=== PATIENT | female | born 1960 | race Caucasian/White ===

== ENCOUNTER 2024-10-04 11:53 | Outpatient (REF) | payer OTHER, SELFPAY ==
[2024-10-04 13:51] LABS: Vitamin B12 718 pg/mL (200-900)
[2024-10-05 09:33] LABS: Lyme Abs Screen <0.90 index
== END 2024-10-04 11:54 | disposition home or self-care (01) ==
LOC: HO.LAB 11:53
PROVIDERS: PCP Internal Medicine; Visit Provider Psychiatry & Neurology Neurology
DX: G30.9 Alzheimer's disease, unspecified (principal)
CPT/HCPCS: 36415; 82607; 86617; 86618

== ENCOUNTER 2024-10-27 09:50 | Outpatient (REF) | payer OTHER, SELFPAY ==
--- NOTE | ~2024-10-27 | MR_ITS ---
EXAMINATION: MR BRAIN WITHOUT CONTRAST CLINICAL INFORMATION: Alzheimer's disease. Memory loss. Confusion. COMPARISON: None available. TECHNIQUE: MRI of the brain was obtained using routine sequences without contrast. FINDINGS: No restricted diffusion. No acute intracranial hemorrhage, mass effect, midline shift, hydrocephalus or herniation. Joseph-white matter differentiation is normal. Bilateral, patchy and punctate, subcortical and deep white matter hyperintense T2 FLAIR signal involving centrum semiovale and holly radiata. Posterior cranial fossa contents demonstrated no signal abnormality or gross mass affect. No signal abnormality or volume loss in the hippocampi. Sellar/suprasellar region is normal. Craniocervical junction is intact and normal. Flow-void signal within the main vessels is normal. There is no prominence of the extra-axial CSF spaces cerebral sulci or ventricles. Polypoid mucosal thickening, paranasal sinuses. Questionable prominent lymph node, left carotid compartment. MR/MR head/brain wo con IMPRESSION: No acute brain abnormality. Nonspecific white matter disease. Consider small vessel occlusive disease in the correct clinical settings demyelinating process cannot be entirely excluded. No cerebral volume loss. Electronically signed by: Henok Solitario MD 10/27/2024 11:27 AM EST
== END 2024-10-27 09:51 | disposition home or self-care (01) ==
LOC: HO.MRI 09:50
PROVIDERS: PCP Internal Medicine; Visit Provider Psychiatry & Neurology Neurology
DX: G30.9 Alzheimer's disease, unspecified (principal)
CPT/HCPCS: 70551

== ENCOUNTER → 2024-10-27 10:00 | Outpatient (BNV) | payer OTHER, SELFPAY | PROVIDERS: PCP Internal Medicine; Visit Provider Radiology Diagnostic Radiology | DX: G30.9 Alzheimer's disease, unspecified (principal) | CPT/HCPCS: 70551 ==